=== PATIENT | male | born 1990 | race Caucasian/White ===

== ENCOUNTER 2023-12-23 06:08 | Day surgery (SDC) | payer BC, SELFPAY ==
[2023-12-23] VITALS (8 sets, daily range): BP systolic 129–144; BP diastolic 89–98; BMI 37.9
== END 2023-12-23 10:00 | disposition home or self-care (01) ==
LOC: SDS 06:08
PROVIDERS: ATTENDING PHYSICIAN Specialist
DX: Z30.2 Encounter for sterilization (principal)
CPT/HCPCS: 55250; 88302